=== PATIENT | male | born 1960 | race Caucasian/White ===

== ENCOUNTER 2020-02-13 19:08 | Emergency (ER) | payer BC, SELFPAY ==
--- NOTE | ~2020-02-13 | US_ITS ---
EXAMINATION: US scrotum doppler DATE: 02/13/2020 20:57 INDICATION: Right scrotal swelling TECHNIQUE: Testicular sonogram utilizing grayscale and Doppler COMPARISON: None. FINDINGS: The right testis measures 4.6 x 2.9 x 3.6 cm. The left testis measures 4.6 x 3.0 x 3.1 cm. Symmetric normal grayscale appearance to both testes. Chase flow is identified in both testes on color Doppler both asymmetrically increased basilar flow in the right testis relative to the left. Similarly there is hyperemia in the right epididymis as well as along the visualized caudal aspect of the spermatic c ord where there is increased echogenicity suggesting edema. There is also scrotal edema with hyperemi a more prominent on the right. There are small bilateral hydroceles, simple anechoic on the left and complex with multiple thin internal septations suggesting an exudate on the right. Left epididymis is normal. There is no varicocele. IMPRESSION: 1. Asymmetric hyperemia to the right epididymis and testis with small complex right hydrocele sugges ting an exudate. Findings are concerning for right-sided epididymitis and orchitis. 2. Small simple appearing left hydrocele. Reviewed, dictated and finalized at location A. IMPRESSION: 1. Asymmetric hyperemia to the right epididymis and testis with small complex right hydrocele suggesting an exudate. Findings are concerning for right-sided epididymitis and orchitis. 2. Small simple appearing left hydrocele.
[2020-02-13 19:11] VITALS: BP 192/70; PULSE 75; RESP 19; TEMP 37.6; O2SAT 98
--- NOTE | 2020-02-13 19:39 | ED.MALEGU ---
HPI - Male Genitourinary General Chief complaint: Urogenital-Male Stated complaint: my testicle is real swoll up. Time Seen by Provider: 02/13/20 19:18 Source: patient Mode of arrival: ambulatory Limitations: no limitations History of Present Illness HPI Narrative: This patient is a 59 year old male who presents for evaluation of right testicular swelling. He states 4 days ago he developed right testicular tenderness and swelling. His daughter wrote him a prescription for Bactrim at that time. He states he has continued to have swelling and pain. He denies nausea, vomiting, fever or chills. He has intermittent pain is his right lower back. HE denies dysuria or increased urinary frequency. He states his urine does appear to be darker. He has decreased appetite as well. He was over at [facility] but he did not want to wait in their ER so he came to [facility] for a scrotal ultrasound. Related Data Allergies Allergy/AdvReac Type Severity Reaction Status Date / Time No Known Allergies Allergy Unverified 10/09/14 18:53 Review of Systems Review of Systems: All systems reviewed & are unremarkable except as noted in HPI and below Constitutional: Constitutional: Denies body ache(s) and Denies chills Gastrointestinal: Gastrointestinal: Denies abdominal pain, Denies belching, Denies nausea and Denies vomiting Genitourinary: Genitourinary: Reports hematuria and Reports testicular pain Musculoskeletal: Musculoskeletal: Reports back pain PMFSH Past Medical History Medical History (Updated 02/14/20 @ 00:00 by Shahnaz Reyes) Patient denies medical problems Surgical History Surgical History (Updated 02/13/20 @ 21:53 by Mellisa Parmar MD) No pertinent past surgical history Social History Social History Gender identity (if verbalized by the patient): Male Exam Const: General: cooperative and healthy appearing Nutritional Appearance: well nourished HENMT: Head: normocephalic and atraumatic Face and sinus: face symmetric Mouth: Yes lip normal Eyes: EOM: EOMs intact bilaterally GI: GI Palp: Yes Soft to palpation, No Tenderness to palpation present (GI), No Guarding due to palpation present (GI), No Rigid due to palpation and No No hepatosplenomegaly present : Penis: Yes circumcised Scrotum: scrotal swelling on the right Testes: testicular lie normal, epididymal tenderness on the right, testicular swelling on the right and testicular tenderness on the right Back/Spine/Pelvis: Back: no CVA tenderness Neuro: General: patient oriented x3 and no focal motor deficits Extrem: General: full ROM Psych: Appearance: grossly normal Course Consultations Consultation #1: I Discussed with Dr. Delgado patient' CT labs and temp. He states patient can be discharged home with prescription for cipro. Patient can be seen in office on Thursday. Date: 02/13/20 Time: 21:54 Vital Signs Vital signs: Vital Signs Temperature 99.7 F H 02/13/20 19:11 Pulse Rate 75 02/13/20 19:11 Respiratory Rate 19 02/13/20 19:11 Blood Pressure 192/70 H 02/13/20 19:11 Pulse Oximetry 98 02/13/20 19:11 Temperature 99.7 F H 02/13/20 19:11 Pulse Rate 59 L 02/13/20 23:09 Respiratory Rate 18 02/13/20 23:09 Blood Pressure 105/52 L 02/13/20 23:09 Pulse Oximetry 97 02/13/20 23:09 MDM - Male Genitourinary Lab Data Attestation: I reviewed the patient's lab results. Result diagrams: 02/13/20 19:47 02/13/20 19:47 Labs: Lab Results 02/13/20 02/13/20 02/13/20 Range/Units 19:47 19:47 19:47 WBC 10.7 H (4.5-10.0) K/mm3 RBC 4.18 L (4.6-6.20) M/mm3 Hgb 12.4 L (14.0-18.0) g/dL Hct 35.3 L (42.0-52.0) % MCV 84.4 (80-100) fl MCH 29.7 (26-34) pg MCHC 35.1 (32-36) g/dl RDW 12.7 (11.5-14.5) % Plt Count 166 (150-375) k/mm3 MPV 9.8 (7.4-10.4) fl Immature Gran % (Auto) 0.3 (0-0.5) % Neut % (Auto) 81.1 H (45.5-73.1)
[2020-02-13 19:52] LABS: Basophils Percent Auto 0.1 % (0.2-1.2); Eosinophils Percent Auto 0.3 % (0-4.4); Hematocrit 35.3 % (42.0-52.0); Hemoglobin 12.4 g/dL (14.0-18.0); Immature Granulocyte Absolute 0.03 K/mm3 (0.00-0.031); Immature Granulocyte Percent A 0.3 % (0-0.5); Lymphocytes Absolute Auto 1.02 K/mm3 (0.9-3.2); Lymphocytes Percent Auto 9.6 % (18.3-44.2); Mean Corpuscular HGB Conc 35.1 g/dl (32-36); Mean Corpuscular Hemoglobin 29.7 pg (26-34); Mean Corpuscular Volume 84.4 fl (80-100); Mean Platelet Volume 9.8 fl (7.4-10.4); Monocytes Absolute Auto 0.9 K/mm3 (0.1-0.6); Monocytes Percent Auto 8.6 % (2.6-8.5); Neutrophils Absolute Auto 8.7 K/mm3 (1.3-6.7); Neutrophils Percent Auto 81.1 % (45.5-73.1); Platelet Count Result 166 k/mm3 (150-375); Red Blood Count 4.18 M/mm3 (4.6-6.20); Red Cell Distribution Width 12.7 % (11.5-14.5); White Blood Count 10.7 K/mm3 (4.5-10.0)
[2020-02-13] MEDS: KETOROLAC 30 MG/ML VIAL (*BKC) IV PUSH (19:54)
[2020-02-13 19:57] LABS: Add Urine Microscopic? YES; Appearance Urine Clear (Clear); Bilirubin Urine Negative (Negative); Blood Urine 2+ (Negative); Color Urine Yellow (Yellow); Glucose Urine UA Negative (Negative); Ketones Urine Negative (Negative); Leukocyte Esterase Ur 1+ LEU/UL (Negative); Mucus Urine Rare /lpf; Nitrate Urine Negative (Negative); Protein Urine 2+ mg/dL (Negative); RBC Urine 51-75 /hpf (0-2); Specific Grav Ur 1.028 (1.001-1.035); Squamous Epithelial Cell Urine Rare /hpf (Few); WBC Urine 51-75 /hpf
[2020-02-13 20:11] LABS: Alanine Aminotransferase 29 U/L (4-50); Albumin Level 4.1 g/dL (3.5-5.1); Alkaline Phosphatase 58 U/L (38-126); Anion Gap 9 mmol/L (8-16); Aspartate Amino Transferase 29 U/L (17-59); Bilirubin,Total 0.8 mg/dL (0.2-1.3); Blood Urea Nitrogen 21 mg/dL (9-20); Calcium 8.8 mg/dL (8.4-10.2); Carbon Dioxide 24 mmol/L (22-30); Chloride 102 mmol/L (98-107); Estimated Glomerular Filt Rate > 60; Glucose 109 mg/dL (75-110); Potassium 3.9 mmol/L (3.4-5.0); Sodium 135 mmol/L (137-145)
[2020-02-13 20:18] LABS: CRP 19.5 mg/dL (<1.0)
[2020-02-13 23:09] VITALS: BP 105/52; PULSE 59; RESP 18; O2SAT 97
== END 2020-02-13 23:19 | disposition home or self-care (01) ==
PROVIDERS: Emergency Provider General Practice; PCP Family Medicine
DX: N45.3 Epididymo-orchitis (principal)
CPT/HCPCS: 36415; 76870; 80053; 81001; 85025; 86140; 87086; 93976; 96365; 96366; 96375; 99284; J1885; J1956